=== PATIENT | female | born 1960 | race Caucasian/White ===

== ENCOUNTER 2017-11-20 08:40 | Emergency (ER) | payer BC, OTHER ==
[~2017-11-20] VITALS: Ht 154.9 cm; Wt 59.0 kg
--- NOTE | 2017-11-20 09:27 | ED Hip Pain/Injury ---
General Chief Complaint: Hip/Pelvic Problems Stated Complaint: HIP PAIN Nursing Triage Note: AMBULATED TO ROOM 03 LIMPING ON RIGHT LEG. STARTED MONDAY EVENING AFTER UNLOADING THE TRUCK AT HER WORK AT [employer] AND HAS BECAME WORSE. UNKNOWN IF SHE WANTS TO TURN IT INTO WORKMANS COMP AT THIS TIME. Source: patient, spouse Exam Limitations: no limitations History of Present Illness Date Seen by Provider: Nov 20, 2017 Time Seen by Provider: 09:08 Initial Comments Patient presents to ER by private conveyance with her significant other and chief complaint she had a fall back in April this year on her right hip and hurt it but it got better. And then the last day and a half she's been having some pain in her right hip in the back of it radiating down towards her knee. She has a history of sciatica. She's never had her back injected. She's not been on steroids. She is using ibuprofen 400 mg once or twice a day with modest relief. She says often she will go to her chiropractor and this helps with her back and sciatic pain. 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 Allergies and Home Medications Allergies Coded Allergies: No Known Drug Allergies (Unverified , 11/20/17) Home Medications No Active Prescriptions or Reported Meds Patient Home Medication List Home Medication List Reviewed: Yes Review of Systems Constitutional: No chills, No diaphoresis EENTM: No hearing loss, No ear pain Respiratory: No cough, No short of breath Cardiovascular: No chest pain, No edema Gastrointestinal: No abdominal pain, No constipation, No diarrhea Genitourinary: No discharge, No dysuria Musculoskeletal: see HPI Past Mwnletu-Mjkjma-Hwnmxj Hx Patient Social History Alcohol Use: Denies Use Recreational Drug Use: No Smoking Status: Never a Smoker Recent Foreign Travel: No Contact w/Someone Who Travel: No Recent Infectious Disease Expo: No Recent Hopitalizations: No Past Medical History Surgeries: No Respiratory: No Cardiac: No Neurological: No Genitourinary: No Gastrointestinal: No Musculoskeletal: No Endocrine: No HEENT: No Cancer: No Psychosocial: No Integumentary: No Physical Exam Vital Signs Vital Signs - First Documented 11/20/17 08:59 Temp 98.0 Pulse 69 Resp 16 B/P (MAP) 192/113 (139) Pulse Ox 98 O2 Delivery Room Air Capillary Refill : Less Than 3 Seconds Height, Weight, BMI Height: 5'1.00" Weight: 130lbs. oz. 58.624350zn; BMI Method:Stated General Appearance: No Apparent Distress, WD/WN HEENT: PERRL/EOMI, Pharynx Normal, Moist Mucous Membranes Neck: Full Range of Motion, Normal Inspection, Non Tender Cardiovascular: Regular Rate, Rhythm, Normal Peripheral Pulses Respiratory: Lungs Clear, Normal Breath Sounds, No Accessory Muscle Use, No Respiratory Distress Peripheral Pulses: 2+ Dorsalis Pedis (R), 2+ Left Dors-Pedis (L) Gastrointestinal: Non Tender, Soft Back: Normal Inspection, No CVA Tenderness, No Vertebral Tenderness, Other ( right L5-S1 facet joint tenderness to palpation and recreation of her sciatic nerve tenderness. Straight leg test positive right side) Extremity: Other (no swelling ecchymosis or pain over the right inguinal number hip joint but there is some mild tenderness of the greater trochanteric bursa and the sciatic nerve under the right gluteal cleft) Neurologic/Psychiatric: Alert, Oriented x3, No Motor/Sensory Deficits Skin: Normal Color, Warm/Dry Progress/Results/Core Measures Results/Orders Vital Signs/I&O 11/20/17 08:59 Temp 98.0 Pulse 69 Resp 16 B/P (MAP) 192/113 (139) Pulse Ox 98 O2 Delivery Room Air Blood Pressure Mean: 139 Progress Progress Note : Time: 09:25 Progress Note We discussed multiple modalities including injecting her back, steroids, NSAIDs , Tylenol, chiropractic and physical therapy. At this time she would like to try prednisone, muscle relaxants, NSAIDs ibuprofen and follow-up with her chiropractor. We'll get her a note off work since she has a lot of trucks to unload this week and put her back next week. She will follow-up with her PCP if she is not improved by then. We have encouraged her to be active at home. Departure Impression Primary Impression: Right hip pain Additional Impressions: Sciatica, right side Greater trochanteric bursitis of right hip Disposition: 01 HOME, SELF-CARE Condition: Stable Departure-Patient Inst. Decision time for Depature: 09:26 Referrals: NO,LOCAL PHYSICIAN (PCP/Family) Primary Care Physician Patient Instructions: Sciatica (DC), Sciatica Exercises Add. Discharge Instructions: Stay active. Ice your leg for 20 minutes every 4 hours for the first 3 days. He can also use heat and topical creams such as Aspercreme or icy hot. Use Tylenol 1000 mg every 8 hours as needed for breakthrough pain. Use the Flexeril one tablet every 8 hours as needed for muscle spasm. If it bleeds you drowsy and break it in half and take one half tablet. Start taking ibuprofen 4 tablets 3 times a day on a schedule for the next 2 weeks to bring down the inflammation and pain in her right hip. Follow-up with your chiropractor or primary care provider if not seeing some improvement in the next few days. Start taking the prednisone one tablet twice a day for the next 5 days to bring down the inflammation in your hip. All discharge instructions reviewed with patient and/or family. Voiced understanding. Scripts Cyclobenzaprine HCl (Cyclobenzaprine HCl) 10 Mg Tablet 10 MG PO Q8H PRN for SPASMS, #15 TAB 0 Refills Prov: LEENA RODRIGUEZ 11/20/17 Prednisone (Prednisone) 20 Mg Tab 20 MG PO BID for 5 Days, #10 TAB 0 Refills Prov: LEENA RODRIGUEZ 11/20/17 Work/School Note: Work Release Form Date Seen in the Emergency Department: Nov 20, 2017 Return to Work: Nov 27, 2017 Restrictions: No Restrictions LEENA RODRIGUEZ Nov 20, 2017 09:27
[2017-11-20] MEDS ORDERED: PRD20T PO (09:28)
[2017-11-20] MEDS ORDERED: CYCL10TA9 PO (09:28)
[2017-11-20 09:35] VITALS: BP 192/113
== END 2017-11-20 09:35 | disposition home or self-care (01) ==
LOC: ER 08:44
DX: M70.61 Trochanteric bursitis, right hip (principal); M25.551 Pain in right hip; M54.41 Lumbago with sciatica, right side; X50.0XXA Overexertion from strenuous movement or load, initial encounter; Y92.59 Other trade areas as the place of occurrence of the external cause; Y99.0 Civilian activity done for income or pay
CPT/HCPCS: 99282